=== PATIENT | female | born 1985 ===

== ENCOUNTER 2021-04-03 06:12 | Day surgery (SDC) | payer OTHER ==
[~2021-04-03 06:12] MED LIST: HUMULIN N100 UNIT/2; HUMULIN R100 UNIT/1; LEVOXYL125 MCG PO; [UNRECOGNIZED DRUG - OTHER] PO
== END 2021-04-03 14:40 | disposition home or self-care (01) ==
LOC: CIR.AMB 06:12
PROVIDERS: ATTEND Obstetrics & Gynecology Maternal & Fetal Medicine
DX: O34.32 Maternal care for cervical incompetence, second trimester (principal); Z3A.14 14 weeks gestation of pregnancy

== ENCOUNTER 2021-07-26 08:31 | Outpatient (CLI) | payer OTHER | END 2021-07-26 09:30 | disposition home or self-care (01) | LOC: NST 08:31 | PROVIDERS: ATTEND Obstetrics & Gynecology Maternal & Fetal Medicine | DX: Z34.83 Encounter for supervision of other normal pregnancy, third trimester (principal) ==

== ENCOUNTER 2021-08-23 10:55 | Outpatient (CLI) | payer OTHER | END 2021-08-23 12:11 | disposition home or self-care (01) | LOC: NST 10:55 | PROVIDERS: ATTEND Obstetrics & Gynecology Maternal & Fetal Medicine | DX: Z34.83 Encounter for supervision of other normal pregnancy, third trimester (principal) ==

== ENCOUNTER 2021-09-13 09:08 | Outpatient (CLI) | payer OTHER | END 2021-09-13 09:46 | disposition home or self-care (01) | LOC: NST 09:08 | PROVIDERS: ATTEND Obstetrics & Gynecology | DX: Z34.83 Encounter for supervision of other normal pregnancy, third trimester (principal) ==

== ENCOUNTER 2021-09-19 12:33 | Inpatient (IN) | payer OTHER ==
[~2021-09-19] VITALS: Ht 167.6 cm; Wt 4.1 kg
[2021-09-25] MEDS ORDERED: MAXIMUM D3325 MCG (08:08)
[2021-09-25] MEDS ORDERED: OMEPRAZOLE40 MG (08:08)
[2021-09-25] MEDS ORDERED: NEO-POLYMYXIN-H10 M1 (08:08)
[2021-09-28] MEDS ORDERED: KETO10TA2 PO (11:29)
[2021-09-28] MEDS ORDERED: OXYC1TAB9 PO (11:30)
== END 2021-09-28 13:10 | disposition home or self-care (01) | DRG 786 ==
LOC: SURH 09-25 07:00 → O/R 09-25 07:38 → OB/GYN 09-25 07:38 → SURH 09-25 12:04 → OB/GYN 09-25 13:29
PROVIDERS: ADMIT Obstetrics & Gynecology; ATTEND Obstetrics & Gynecology
PROC: 4A1HXFZ Monitoring of Products of Conception, Cardiac Rhythm, External Approach (ICD-10-PCS; 2021-09-25)
PROC: 10D00Z1 Extraction of Products of Conception, Low, Open Approach (ICD-10-PCS; principal; 2021-09-25 07:00)
DX: O32.1XX0 Maternal care for breech presentation, not applicable or unspecified (principal); O24.12 Pre-existing type 2 diabetes mellitus, in childbirth; O99.824 Streptococcus B carrier state complicating childbirth; Z3A.38 38 weeks gestation of pregnancy; Z37.0 Single live birth